=== PATIENT | male | born 1990 ===

== ENCOUNTER 2016-10-13 12:12 | Emergency (ER) | payer OTHER ==
[2016-10-13 12:12] VITALS: BMI 20.9
--- NOTE | 2016-10-13 13:06 | ED PDOC ---
Arrival/HPI <Liane Ribeiro - Last Filed: 10/13/16 16:30> - General Historian: Patient, Fishing Vessel Operator - History of Present Illness Time/Duration: > week Symptom Onset: Gradual Quality: Aching Context: Standing <Armaan Yoon - Last Filed: 10/13/16 18:55> - General Chief Complaint: Lower Extremity Problem/Injury Time Seen by Provider: 10/13/16 12:42 - History of Present Illness Narrative History of Present Illness (Text): 10/13/16 13:01 26 y/o male with hx of IDDM presenting with complaints of b/l distal LE pain. Patient describes pain as achy in nature and notes sx started about 2 weeks ago.He notes pain is worse with prolonged standing and also frequently presents at night. He denies injury or trauma to either leg. He further denies weakness or sensory deficits, fever, chills, recent illness, shortness of breath or chest pain. He states he is compliant with his insulin regimen which includes 50u in the the am and 40u at bedtime. Patient has a history of poorly controlled diabetes according to records. (Armaan Yoon) Past Medical History - Provider Review Nursing Documentation Reviewed: Yes - Travel History Have you recently traveled outside [place] w/in the past 3 mons?: No - Infectious Disease Hx of Infectious Diseases: None - Tetanus Immunization Tetanus Immunization: Unknown - Cardiac Hx Cardiac Disorders: No - Pulmonary Hx Respiratory Disorders: No - Neurological Hx Neurological Disorder: No - HEENT Hx HEENT Disorder: No - Renal Hx Renal Disorder: No - Endocrine/Metabolic Hx Endocrine Disorders: Yes Hx Diabetes Mellitus Type 1: Yes - Hematological/Oncological Hx Blood Disorders: No - Integumentary Hx Dermatological Disorder: No - Musculoskeletal/Rheumatological Hx Musculoskeletal Disorders: Yes Hx Falls: Yes - Gastrointestinal Hx Gastrointestinal Disorders: Yes Hx Pancreatitis: Yes - Genitourinary/Gynecological Hx Genitourinary Disorders: No - Psychiatric Hx Psychophysiologic Disorder: Yes (ETOH USE) Hx Depression: No Hx Emotional Abuse: No Hx Physical Abuse: No Hx Substance Use: No - Past Surgical History Past Surgical History: No Previous - Suicidal Assessment Feels Threatened In Home Enviroment: No <Armaan Yoon - Last Filed: 10/13/16 18:55> Family/Social History Family/Social History: No Known Family HX Smoking Status: Never Smoked Hx Alcohol Use: No Hx Substance Use: No Hx Substance Use Treatment: No <Armaan Yoon - Last Filed: 10/13/16 18:55> Allergies/Home Meds <Liane Ribeiro - Last Filed: 10/13/16 16:30> <Armaan Yoon - Last Filed: 10/13/16 18:55> Allergies/Adverse Reactions: Allergies Penicillins Allergy (Verified 10/13/16 12:37) ANAPHYLAXIS Home Medications: Home Meds Medication Instructions Recorded Confirmed Insulin Human (NPH)/Regular 1 unit SC PRN PRN 09/24/16 10/13/16 [Novolin 70/30 (70/30 units/ml) 10 ml] Review of Systems - Physician Review All systems were reviewed & negative as marked: Yes - Review of Systems Constitutional: Normal. absent: Fevers, Night Sweats ENT: Normal Respiratory: absent: SOB, Cough Cardiovascular: Calf Pain. absent: Chest Pain, Palpitations, LE Gastrointestinal: absent: Abdominal Pain, Diarrhea, Vomiting Musculoskeletal: absent: Back Pain, Neck Pain Skin: absent: Rash, Skin Lesions Neurological: Other (+b/l LE pain). absent: Headache, Dizziness, Focal Weakness <Armaan Yoon - Last Filed: 10/13/16 18:55> Physical Exam Vital Signs Reviewed: Yes Temperature: Afebrile Blood Pressure: Normal Pulse: Tachycardic Respiratory Rate: Normal Appearance: Positive for: Well-Appearing Pain Distress: None Mental Status: Positive for: Alert and Oriented X 3 Finger Stick Blood Glucose: 378 - Systems Exam Head: Present: Atraumatic, Normocephalic Pupils: Present: PERRL Extroacular Muscles: Present: EOMI Conjunctiva: Present: Normal Mouth: Present: Moist Mucous Membranes Neck: Present: Normal Range of Motion Respiratory/Chest: Present: Clear to Auscultation. No: Respiratory Distress, Accessory Muscle Use, Tachypneic Cardiovascular: Present: Tachycardic. No: Irregular Rhythm Abdomen: No: Tenderness, Distention, Normal Bowel Sounds, Peritoneal Signs Back: Present: Normal Inspection. No: Midline Tenderness, Paraspinal Tenderness Upper Extremity: Present: Normal Inspection, Cyanosis, Edema Lower Extremity: Present: Normal Inspection, NORMAL PULSES, Neurovascularly Intact. No: Edema, CALF TENDERNESS Neurological: Present: GCS=15, CN II-XII Intact, Speech Normal, Motor Func Grossly Intact Skin: Present: Warm, Normal Color. No: Rashes Psychiatric: Present: Alert, Oriented x 3, Normal Insight, Normal Concentration <Armaan Yoon - Last Filed: 10/13/16 18:55> Vital Signs Temp Pulse Resp BP Pulse Ox 10/13/16 16:46 87 16 120/72 99 10/13/16 14:24 98.5 F 110 H 16 122/88 98 10/13/16 12:32 98.2 F 128 H 18 132/57 L 97 Medical Decision Making - Lab Interpretations I have reviewed the lab results: Yes <Liane Ribeiro - Last Filed: 10/13/16 16:30> - EKG Interpretation Interpreted by ED Physician: Yes Type: 12 lead EKG <Armaan Yoon - Last Filed: 10/13/16 18:55> ED Course and Treatment: 10/13/16 13:33 Patient seen and examined with resident. Came up with treatment and disposition plan with resident. The patient is a 26 year old male who comes into the emergency department for evaluation of bilateral lower extremity pain. Additional HPI details as noted by the resident. Physical examination reveal no acute findings. 10/13/16 16:30 Patient ultrasound is negative. Blood glucose is 259. On re-evaluation, the patient feels better and is in no acute distress. I have discussed the results and plan with the patient, who expresses understanding. Patient in agreement with plan to discharged home. Patient is stable for discharge. Patient was instructed to follow up with physician/clinic in 1-2 days or return if symptoms worsen or new concerning symptoms arise. (Liane Ribeiro) 10/13/16 13:12 26 y/o male with hx IDDM presenting with pain to b/l LE 2/2 neuropathy/DVT/ radiculopathy - start normal saline - repeat fingerstick - d-dimer - routine labs - Doppler b/l LE - r/o DVT 10/13/16 16:17 - Duplex b/l LE negative for DVT - repeat bedside blood glucose - 259 10/13/16 16:18 W/u is essentially unremarkable. His distal extremity pain is likely secondary to diabetic neuropathy secondary to his uncontrolled diabetes. The patient was advised to take his insulin as directed and to follow-up at [facility] where he is followed within one week. He was given a seven day course of Naproxen 500mg PO q12 PRN pain. (Armaan Yoon) - Lab Interpretations Lab Results: 10/13/16 13:40 10/13/16 12:59 Lab Results 10/13/16 16:17: POC Glucose (mg/dL) 251 H 10/13/16 14:12: TSH 3rd Generation 2.09 10/13/16 13:40: WBC 5.6, RBC 4.84, Hgb 15.3, Hct 41.3 L, MCV 85.3, MCH 31.6, MCHC 37.0, RDW 11.7, Plt Count 291, MPV 9.0, Gran % 46.8 L, Lymph % (Auto) 45.9 H, [place] % (Auto) 6.6 H, Eos % (Auto) 0.5 L, Baso % (Auto) 0.2, Gran # 2.63, Lymph # 2.6, [place] # 0.4, Eos # 0.0, Baso # 0.01, D-Dimer, Quantitative 0.19 10/13/16 12:59: Sodium 133, Potassium 4.1, Chloride 93 L, Carbon Dioxide 28, Anion Gap 16, BUN 12, Creatinine 0.5, Est GFR ( Amer) > 60, Est GFR (Non- Af Amer) > 60, Random Glucose 409 H*, Calcium 10.2, Total Bilirubin 0.7, AST 21 , ALT 17, Alkaline Phosphatase 108, Total Protein 8.4 H, Albumin 4.6, Globulin 3.8, Albumin/Globulin Ratio 1.2, Lipase 57 10/13/16 12:44: POC Glucose (mg/dL) 378 H - RAD Interpretation Radiology Orders: 10/13/16 12:58 DUPLEX LOWER EXTRM VEIN BILAT [US] [facility] - EKG Interpretation EKG Interpretation (Text): 10/13/16 14:23 Sinus tachycardia (Armaan Yoon) - Medication Orders Current Medication Orders: Discontinued Medications Sodium Chloride (Sodium Chloride 0.9%) 1,000 mls @ 125 mls/hr IV .Q8H [facility] Last Admin: 10/13/16 13:25 Dose: 125 MLS/HR eMAR Start Stop Document 10/13/16 13:25 EWO (Rec: 10/13/16 13:25 EWO [id number]) Intravenous Solution Start Date 10/13/16 Start Time 13:25 Sodium Chloride (Sodium Chloride 0.9%) 2,000 mls @ 1,000 mls/hr IV .Q2H [facility] Last Admin: 10/13/16 14:15 Dose: 1,000 MLS/HR eMAR Start Stop Document 10/13/16 14:15 [facility] (Rec: 10/13/16 16:45 [id number] Intravenous Solution Start Date 10/13/16 Start Time 14:15 End Date 10/13/16 End time 15:15 Total Infusion Time 60 - Scribe Statement The provider has reviewed the documentation as recorded by the Scribe <Liane Ribeiro - Last Filed: 10/13/16 16:30> <Armaan oYon - Last Filed: 10/13/16 18:55> - Scribe Statement Raymundo Calle Provider Scribe Attestation: All medical record entries made by the Scribe were at my direction and personally dictated by me. I have reviewed the chart and agree that the record accurately reflects my personal performance of the history, physical exam, medical decision making, and the department course for this patient. I have also personally directed, reviewed, and agree with the discharge instructions and disposition. (Liane Ribeiro) Disposition/Present on Arrival <Liane Ribeiro - Last Filed: 10/13/16 16:30> - Present on Arrival Any Indicators Present on Arrival: No History of DVT/PE: No History of Uncontrolled Diabetes: Yes Urinary Catheter: No History of Decub. Ulcer: No History Surgical Site Infection Following: None - Disposition Have Diagnosis and Disposition been Completed?: Yes Disposition Time: 17:00 <Armaan Yoon - Last Filed: 10/13/16 18:55> - Disposition Diagnosis: Peripheral neuropathy Disposition: HOME/ ROUTINE Condition: GOOD Discharge Instructions (ExitCare): Diabetes Mellitus Type 1 in Adults (ED) Print Language: GRENADIAN Additional Instructions: Please take medications as prescribed. Please follow-up with family doctor at [facility] within one week for further management of diabetes. Take pain medication - Naproxen 500mg twice daily as needed for pain. Prescriptions: Naproxen 500 mg PO Q12 #14 tab Referrals: PCP,NO [Primary Care Provider] - Follow up with primary
[2016-10-13] MEDS ORDERED: Sodium Chloride 0.9% 1,000 ML IV SCH (13:30)
[2016-10-13 13:33] LABS: ADD MANUAL DIFF? NO; BASO # 0.01 K/mm3 (0.0-2.0); BASO % 0.2 % (0.0-3.0); EOS % 0.5 % (1.5-5.0); GRAN # 2.63 (1.4-6.5); GRAN % 46.8 % (50.0-68.0); HEMATOCRIT 41.3 % (42.0-52.0); LYMPH # 2.6 (1.2-3.4); LYMPH % 45.9 % (22.0-35.0); MEAN CELL VOLUME 85.3 fL (80.0-105.0); MEAN CORPUSCULAR HEMOGLOBIN 31.6 pg (25.0-35.0); MONO # 0.4 (0.1-0.6); MONO % 6.6 % (1.0-6.0); PLATELET COUNT 291 10^3/uL (120.0-450.0); RED CELL DISTRIBUTION WIDTH 11.7 % (11.5-14.5); WHITE BLOOD COUNT 5.6 10^3/ul (4.5-11.0)
[2016-10-13 13:44] LABS: ALB/GLOB RATIO 1.2 (1.1-1.8); ALKALINE PHOSPHATASE 108 U/L (38-133); ALT/SGPT 17 U/L (7-56); AST/SGOT 21 U/L (15-59); BILIRUBIN,TOTAL 0.7 mg/dL (0.2-1.3); BLOOD UREA NITROGEN 12 mg/dL (7-21); CALCIUM 10.2 mg/dL (8.4-10.5); CARBON DIOXIDE 28 mmol/L (21-33); CHLORIDE 93 mmol/L (98-107); GFR AFRICAN-AMERICAN > 60; LIPASE 57 U/L (23-300); POTASSIUM 4.1 mmol/L (3.6-5.0); SODIUM 133 mmol/L (132-148); TOTAL PROTEIN 8.4 g/dL (5.8-8.3)
[2016-10-13 13:56] LABS: GLUCOSE,RANDOM 409 mg/dL (70-110)
[2016-10-13] MEDS ORDERED: Sodium Chloride 0.9% 2,000 ML IV SCH (14:15)
[2016-10-13 14:24] VITALS: RESP 16; TEMP 98.5
[2016-10-13 16:48] VITALS: BP 120/72; PULSE 87; O2SAT 99
--- NOTE | 2016-10-13 18:14 | CARD ---
APPROVED REPORT EKG Measurement Heart [id number] <Conclusion> Sinus tachycardia Otherwise normal ECG
--- NOTE | 2016-10-13 22:02 | US ---
HISTORY: Leg pain and swelling. Evaluate for DVT PHYSICIAN(S): John Barrera MD. TECHNIQUE: Duplex sonography and color-flow Doppler with graded compression were used to evaluate the deep venous systems of both lower extremities. FINDINGS: The visualized deep venous systems of both lower extremities are sonographically normal and compressible. Normal wave forms and augmentation are seen. There is no sonographic evidence for deep venous thrombosis in the visualized segments of both lower extremities. IMPRESSION: No sonographic evidence for deep venous thrombosis in the visualized segments of both lower extremities.
== END 2016-10-13 16:48 | disposition home or self-care (01) ==
LOC: ED 12:12
DX: G62.9 Polyneuropathy, unspecified (principal); E10.9 Type 1 diabetes mellitus without complications; Z79.4 Long term (current) use of insulin; Z88.0 Allergy status to penicillin
CPT/HCPCS: 80053; 82948; 83690; 84443; 85025; 85378; 93005; 93970; 96360; 99283; J7040

== ENCOUNTER 2017-04-28 09:37 | Emergency (ER) | payer OTHER ==
[2017-04-28 09:39] VITALS: BMI 20.9
[2017-04-28] MEDS ORDERED: Sodium Chloride 0.9% 1,000 ML IV STA ×2 (09:58→10:43)
--- NOTE | 2017-04-28 10:02 | ED PDOC ---
Arrival/HPI - General Chief Complaint: Abdominal Pain Time Seen by Provider: 04/28/17 09:54 Historian: Patient - History of Present Illness Narrative History of Present Illness (Text): 04/28/17 09:55 Gabriele Mathew is a 26 year old male, whose past medical history includes diabetes, who presents to the emergency department complaining of diarrhea for the past week. Patient reports everything he eats, five minutes later he has a bowel movement of diarrhea. pt denies any blood in the stool. pt denies abdominal pain. Patient denies any fever, nausea, vomiting, shortness of breath , chest pain, headache, or other complaints. 04/28/17 11:05 Time/Duration: 1 week Symptom Onset: Sudden Symptom Course: Unchanged Modifying Factors (Text): diarrhea after eating Past Medical History - Provider Review Nursing Documentation Reviewed: Yes - Infectious Disease Hx of Infectious Diseases: None - Tetanus Immunization Tetanus Immunization: Unknown - Cardiac Hx Cardiac Disorders: No - Pulmonary Hx Respiratory Disorders: No - Neurological Hx Neurological Disorder: No - HEENT Hx HEENT Disorder: No - Renal Hx Renal Disorder: No - Endocrine/Metabolic Hx Endocrine Disorders: Yes Hx Diabetes Mellitus Type 1: Yes - Hematological/Oncological Hx Blood Disorders: No - Integumentary Hx Dermatological Disorder: No - Musculoskeletal/Rheumatological Hx Musculoskeletal Disorders: Yes Hx Falls: Yes Other/Comment: 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 - Gastrointestinal Hx Gastrointestinal Disorders: Yes Hx Pancreatitis: Yes - Genitourinary/Gynecological Hx Genitourinary Disorders: No - Psychiatric Hx Psychophysiologic Disorder: Yes (ETOH USE) Hx Depression: No Hx Emotional Abuse: No Hx Physical Abuse: No Hx Substance Use: No - Past Surgical History Past Surgical History: No Previous - Anesthesia Hx Anesthesia: No - Suicidal Assessment Feels Threatened In Home Enviroment: No Family/Social History - Physician Review Nursing Documentation Reviewed: Yes Family/Social History: Unknown Family HX Smoking Status: Never Smoked Hx Alcohol Use: No Hx Substance Use: No Hx Substance Use Treatment: No Allergies/Home Meds Allergies/Adverse Reactions: Allergies Penicillins Allergy (Verified 04/28/17 09:43) ANAPHYLAXIS Home Medications: Home Meds Medication Instructions Recorded Confirmed Insulin Human (NPH)/Regular 15 unit SC BID 09/24/16 04/28/17 [Novolin 70/30 (70/30 units/ml) 10 ml] Gabapentin [Gabapentin] 300 mg PO BID 04/28/17 04/28/17 Potassium Gluconate [Potassium] 0 mg PO DAILY 04/28/17 04/28/17 Review of Systems - Review of Systems Constitutional: absent: Fevers Respiratory: absent: SOB Cardiovascular: absent: Chest Pain Gastrointestinal: Diarrhea (1 week). absent: Nausea, Vomiting Genitourinary Male: absent: Dysuria, Frequency Neurological: absent: Headache, Dizziness Physical Exam Vital Signs Reviewed: Yes Vital Signs Temp Pulse Resp BP Pulse Ox 04/28/17 11:56 86 16 117/73 100 04/28/17 10:58 90 15 119/74 100 04/28/17 10:12 98.0 F 04/28/17 09:47 98.6 F 128 H 18 105/71 99 Temperature: Afebrile Blood Pressure: Normal Pulse: Tachycardic Respiratory Rate: Normal Appearance: Positive for: Well-Appearing, Non-Toxic, Comfortable Pain Distress: None Mental Status: Positive for: Alert and Oriented X 3 Finger Stick Blood Glucose: 318 - Systems Exam Head: Present: Atraumatic, Normocephalic Pupils: Present: PERRL Extroacular Muscles: Present: EOMI Conjunctiva: Present: Normal Mouth: Present: Moist Mucous Membranes Respiratory/Chest: Present: Clear to Auscultation, Good Air Exchange. No: Respiratory Distress, Accessory Muscle Use Cardiovascular: Present: Regular Rate and Rhythm, Normal S1, S2. No: Murmurs Abdomen: Present: Normal Bowel Sounds. No: Tenderness, Distention, Peritoneal Signs Lower Extremity: Present: Normal Inspection. No: Edema Neurological: Present: GCS=15, CN II-XII Intact, Speech Normal Skin: Present: Warm, Dry, Normal Color. No: Rashes Psychiatric: Present: Alert, Oriented x 3, Normal Insight, Normal Concentration Medical Decision Making ED Course and Treatment: 04/28/17 r/o colitis, dka, infectious etiology- pt w/o any abdominal tenderness on exam. EKG: Ordered, reviewed, and independently interpreted the EKG. Rate : 111 BPM Rhythm : sinus tachycardia Interpretation : No ST-segment elevations or depressions, no T-wave inversions, normal intervals. Comparison : No previous EKG for comparison. 04/28/17 11:05 pt reassesed: states symptoms improved. pt denies any abdomianl pain. pt offered ct of abdomen, but he declines. no e/o of dka. blood sugar decreasing. pt advised outpt f/u and return precautions - Lab Interpretations Lab Results: 04/28/17 10:18 04/28/17 10:18 Lab Results 04/28/17 10:18: pO2 54, VBG pH 7.32, VBG pCO2 55.0, VBG HCO3 28.3 H, VBG Total CO2 30.0 H, VBG O2 Sat (Calc) 88.6 H, VBG Base Excess 1.1, VBG Potassium 4.0, Sodium 136.0, Chloride 101.0, Glucose 401 H*, Lactate 1.6, FiO2 21.0, Venous Blood Potassium 4.0 04/28/17 10:18: Sodium 138, Chloride 99, Potassium 4.0, Carbon Dioxide 26, Anion Gap 17, BUN 14, Creatinine 0.5 L, Est GFR ( Amer) > 60, Est GFR ( Non-Af Amer) > 60, Random Glucose 359 H*, Calcium 9.4, Total Bilirubin 0.9, AST 24, ALT 39, Alkaline Phosphatase 137 H, Total Protein 7.3, Albumin 4.6, Globulin 2.7, Albumin/Globulin Ratio 1.7, Lipase 81 04/28/17 10:18: PT 10.4, INR 0.96, APTT 24.8 04/28/17 10:18: WBC 5.3, RBC 4.60, Hgb 14.5, Hct 39.5 L, MCV 85.9, MCH 31.5, MCHC 36.7, RDW 11.9, Plt Count 191, MPV 9.2, Gran % 48.1 L, Lymph % (Auto) 44.5 H, [place] % (Auto) 5.9, Eos % (Auto) 1.1 L, Baso % (Auto) 0.4, Gran # 2.53, Lymph # 2.3, [place] # 0.3, Eos # 0.1, Baso # 0.02 I have reviewed the lab results: Yes - EKG Interpretation Interpreted by ED Physician: Yes Type: 12 lead EKG - Medication Orders Current Medication Orders: Discontinued Medications Acetaminophen (Tylenol 325mg Tab) 975 mg PO STAT STA Stop: 04/28/17 10:00 Last Admin: 04/28/17 10:33 Dose: 975 mg MAR Pain/Vitals Document 04/28/17 10:33 EQ (Rec: 04/28/17 10:33 EQ [id number]) Pain Reassessment Is This A Pain ReAssessment? No Sleep Is patient sleeping during reassessment? No Presence of Pain Presence of Pain Yes Pain Scale Used Pain Scale Used Numeric Sodium Chloride (Sodium Chloride 0.9%) 1,000 mls @ 1,000 mls/hr IV .Q1H STA Stop: 04/28/17 10:57 Last Admin: 04/28/17 10:19 Dose: 1,000 mls/hr eMAR Start Stop Document 04/28/17 10:19 EQ (Rec: 04/28/17 10:19 EQ [id number]) Intravenous Solution Start Date 04/28/17 Start Time 10:19 Sodium Chloride (Sodium Chloride 0.9%) 1,000 mls @ 999 mls/hr IV .Q1H1M STA Stop: 04/28/17 11:43 Last Admin: 04/28/17 10:55 Dose: 999 mls/hr eMAR Start Stop Document 04/28/17 10:55 EQ (Rec: 04/28/17 10:55 EQ [id number]) Intravenous Solution Start Date 04/28/17 Start Time 10:55 - Scribe Statement The provider has reviewed the documentation as recorded by the Ramila Maher Provider Scribe Attestation: All medical record entries made by the Scribe were at my direction and personally dictated by me. I have reviewed the chart and agree that the record accurately reflects my personal performance of the history, physical exam, medical decision making, and the department course for this patient. I have also personally directed, reviewed, and agree with the discharge instructions and disposition. Disposition/Present on Arrival - Present on Arrival Any Indicators Present on Arrival: No History of DVT/PE: No History of Uncontrolled Diabetes: Yes Urinary Catheter: No History of Decub. Ulcer: No History Surgical Site Infection Following: None - Disposition Have Diagnosis and Disposition been Completed?: Yes Diagnosis: Diarrhea Disposition: HOME/ ROUTINE Disposition Time: 11:07 Condition: STABLE Discharge Instructions (ExitCare): Dehydration (ED), Acute Diarrhea (ED), Acute Abdominal Pain (ED), Diabetic Hyperglycemia (ED) Print Language: CANADIAN Additional Instructions: please follow up with your doctor. return to er with worsening symptoms or concerns. you may need additional diagnositc testing as an outpatient. it is important that you follow up. Referrals: PCP,NO [Primary Care Provider] - Follow up with primary [facility] [Outside] - Follow up with primary [facility] [Outside] - Follow up with primary [facility] [Outside] - Follow up with primary Adams Chiang MD [Staff Provider] - Follow up with primary Forms: [employer] [address] (Greenlandic)
[2017-04-28 10:12] VITALS: TEMP 98
[2017-04-28 10:29] LABS: VENOUS BLOOD GAS BASE EXCESS 1.1 mmol/L (0.0-2.0); VENOUS BLOOD PH 7.32 (7.32-7.43)
[2017-04-28 10:32] LABS: BASO # 0.02 K/mm3 (0.0-2.0); BASO % 0.4 % (0.0-3.0); EOS # 0.1 (0.0-0.7); EOS % 1.1 % (1.5-5.0); GRAN # 2.53 (1.4-6.5); GRAN % 48.1 % (50.0-68.0); HEMATOCRIT 39.5 % (42.0-52.0); LYMPH # 2.3 (1.2-3.4); LYMPH % 44.5 % (22.0-35.0); MEAN CELL VOLUME 85.9 fl (80.0-105.0); MEAN CORPUSCULAR HEMOGLOBIN 31.5 pg (25.0-35.0); MEAN CORPUSCULAR HGB CONC 36.7 g/dl (31.0-37.0); MEAN PLATELET VOLUME 9.2 fl (7.0-11.0); MONO # 0.3 (0.1-0.6); MONO % 5.9 % (1.0-6.0); RED CELL DISTRIBUTION WIDTH 11.9 % (11.5-14.5); WHITE BLOOD COUNT 5.3 10^3/ul (4.5-11.0)
[2017-04-28 10:34] LABS: ALB/GLOB RATIO 1.7 (1.1-1.8); ALKALINE PHOSPHATASE 137 U/L (38-126); ALT/SGPT 39 U/L (7-56); AST/SGOT 24 U/L (17-59); BILIRUBIN,TOTAL 0.9 mg/dL (0.2-1.3); BLOOD UREA NITROGEN 14 mg/dL (7-21); CALCIUM 9.4 mg/dL (8.4-10.5); CARBON DIOXIDE 26 mmol/L (21-33); CHLORIDE 99 mmol/L (98-107); GFR AFRICAN-AMERICAN > 60; LIPASE 81 U/L (23-300); SODIUM 138 mmol/L (132-148); TOTAL PROTEIN 7.3 g/dL (5.8-8.3)
[2017-04-28 10:36] LABS: INR 0.96 (0.93-1.08); PARTIAL THROMBOPLASTIN TIME 24.8 Seconds (23.7-30.8)
[2017-04-28 10:42] LABS: GLUCOSE,RANDOM 359 mg/dL (70-110)
[2017-04-28 10:59] VITALS: O2SAT 100
[2017-04-28 11:56] VITALS: BP 117/73; PULSE 86; RESP 16
--- NOTE | 2017-04-29 01:57 | CARD ---
APPROVED REPORT EKG Measurement Heart [id number] <Conclusion> Sinus tachycardia Nonspecific T wave abnormality Abnormal ECG
== END 2017-04-28 11:58 | disposition home or self-care (01) ==
LOC: ED 09:37
DX: R19.7 Diarrhea, unspecified (principal)
CPT/HCPCS: 80053; 82803; 82948; 83690; 85025; 85610; 85730; 93005; 99284; J7040

== ENCOUNTER 2017-07-28 11:22 | Emergency (ER) | payer OTHER ==
[2017-07-28 11:22] VITALS: BMI 20.9
[2017-07-28 11:36] VITALS: O2SAT 100
[2017-07-28] MEDS ORDERED: Sodium Chloride 0.9% 1,000 ML IV STA ×2 (11:40→13:06)
[2017-07-28] MEDS ORDERED: Insulin Reg-MEDIUM-Coverage IV STA ×2 (11:41→13:06)
[2017-07-28] MEDS ORDERED: Insulin Regular 1 UNITS/0.01 ML ML ONE (12:09)
[2017-07-28 12:12] LABS: BASO # 0.02 K/mm3 (0.0-2.0); BASO % 0.4 % (0.0-3.0); EOS % 0.8 % (1.5-5.0); GRAN # 2.8 (1.4-6.5); GRAN % 57.5 % (50.0-68.0); LYMPH # 1.7 (1.2-3.4); LYMPH % 34.1 % (22.0-35.0); MEAN CELL VOLUME 89.5 fl (80.0-105.0); MEAN CORPUSCULAR HEMOGLOBIN 31.4 pg (25.0-35.0); MEAN CORPUSCULAR HGB CONC 35.1 g/dl (31.0-37.0); MEAN PLATELET VOLUME 9.3 fl (7.0-11.0); MONO # 0.4 (0.1-0.6); MONO % 7.2 % (1.0-6.0); RBC 4.46 10^6/uL (3.5-6.1); RED CELL DISTRIBUTION WIDTH 12.7 % (11.5-14.5); WHITE BLOOD COUNT 4.9 10^3/ul (4.5-11.0)
[2017-07-28 12:23] LABS: INR 0.9 (0.93-1.08); PROTHROMBIN TIME 10.3 SECONDS (9.4-12.5)
[2017-07-28 12:34] LABS: TROPONIN I < 0.01 ng/mL
[2017-07-28 12:38] LABS: ALB/GLOB RATIO 1.6 (1.1-1.8); ALBUMIN 4.6 g/dL (3.0-4.8); ALT/SGPT 42 U/L (7-56); AST/SGOT 31 U/L (17-59); BLOOD UREA NITROGEN 14 mg/dL (7-21); CALCIUM 9.2 mg/dL (8.4-10.5); GFR AFRICAN-AMERICAN > 60; GFR NON-AFRICAN AMERICAN > 60
[2017-07-28 14:17] VITALS: BP 115/73; PULSE 90; RESP 19; TEMP 98.3
--- NOTE | 2017-07-28 14:30 | ED PDOC ---
Arrival/HPI - General Chief Complaint: High Blood Sugar Time Seen by Provider: 07/28/17 11:37 Historian: Patient - History of Present Illness Narrative History of Present Illness (Text): 07/28/17 14:27 27yo male with PMHx of IDDM who was referred to ED for a BS of 491. Patient states he is on 25unit of regular insulin, but did not take it today. States he intentionally didn't take it because he had doctor's appointment this morning. He reports polydipsia since this morning. Denies abdominal pain, nausea, vomiting, diarrhea, focal weakness, polyuria, any other complaint. Past Medical History - Provider Review Nursing Documentation Reviewed: Yes - Infectious Disease Hx of Infectious Diseases: None - Tetanus Immunization Tetanus Immunization: Unknown - Cardiac Hx Cardiac Disorders: No - Pulmonary Hx Respiratory Disorders: No - Neurological Hx Neurological Disorder: No - HEENT Hx HEENT Disorder: No - Renal Hx Renal Disorder: No - Endocrine/Metabolic Hx Endocrine Disorders: Yes Hx Diabetes Mellitus Type 1: Yes - Hematological/Oncological Hx Blood Disorders: No - Integumentary Hx Dermatological Disorder: No - Musculoskeletal/Rheumatological Hx Musculoskeletal Disorders: Yes Hx Falls: Yes Other/Comment: 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 - Gastrointestinal Hx Gastrointestinal Disorders: Yes Hx Pancreatitis: Yes - Genitourinary/Gynecological Hx Genitourinary Disorders: No - Psychiatric Hx Psychophysiologic Disorder: Yes (ETOH USE in past) Hx Substance Use: No - Past Surgical History Past Surgical History: No Previous - Anesthesia Hx Anesthesia: No - Suicidal Assessment Feels Threatened In Home Enviroment: No Family/Social History - Physician Review Nursing Documentation Reviewed: Yes Family/Social History: Unknown Family HX Smoking Status: Never Smoked Hx Alcohol Use: No Hx Substance Use: No Hx Substance Use Treatment: No Allergies/Home Meds Allergies/Adverse Reactions: Allergies Penicillins Allergy (Verified 07/28/17 11:36) ANAPHYLAXIS Home Medications: Home Meds Medication Instructions Recorded Confirmed Insulin Human (NPH)/Regular 25 unit SC BID 09/24/16 07/28/17 [Novolin 70/30 (70/30 units/ml) 10 ml] Gabapentin [Gabapentin] 300 mg PO BID 04/28/17 07/28/17 Review of Systems - Physician Review All systems were reviewed & negative as marked: Yes - Review of Systems Constitutional: Normal Eyes: Normal ENT: Normal Respiratory: Normal Cardiovascular: Normal Gastrointestinal: Normal Genitourinary Male: Normal Musculoskeletal: Normal Skin: Normal Neurological: Normal Endocrine: Polydipsia Hemo/Lymphatic: Normal Psychiatric: Normal Physical Exam Vital Signs Reviewed: Yes Vital Signs Temp Pulse Resp BP Pulse Ox 07/28/17 14:10 98.3 F 90 19 115/73 100 07/28/17 11:29 98.1 F 101 H 18 134/87 100 Temperature: Afebrile Blood Pressure: Normal Pulse: Tachycardic Respiratory Rate: Normal Appearance: Positive for: Well-Appearing, Non-Toxic, Comfortable Pain Distress: None Mental Status: Positive for: Alert and Oriented X 3 Finger Stick Blood Glucose: 349 - Systems Exam Head: Present: Atraumatic, Normocephalic Pupils: Present: PERRL Extroacular Muscles: Present: EOMI Conjunctiva: Present: Normal Mouth: Present: Moist Mucous Membranes Neck: Present: Normal Range of Motion Respiratory/Chest: Present: Clear to Auscultation, Good Air Exchange. No: Respiratory Distress, Accessory Muscle Use Cardiovascular: Present: Regular Rate and Rhythm, Normal S1, S2. No: Murmurs Abdomen: Present: Normal Bowel Sounds. No: Tenderness, Distention, Peritoneal Signs Back: Present: Normal Inspection Upper Extremity: Present: Normal Inspection. No: Cyanosis, Edema Lower Extremity: Present: Normal Inspection. No: Edema Neurological: Present: GCS=15, CN II-XII Intact, Speech Normal Skin: Present: Warm, Dry, Normal Color. No: Rashes Psychiatric: Present: Alert, Oriented x 3, Normal Insight, Normal Concentration Medical Decision Making ED Course and Treatment: 07/28/17 18:29 PT in ED for stated history. He have history of IDDM and did not take his insulin this morning to fast for lab test. In ED he was hemodynamically stable. Lab was noted with elevated BS. His BS improved in ED with insulin and hydration. He was DC home and advised to continue with his medication as was directed. Referred to his PMD. TRT ED for any new or worsening symptoms. - Lab Interpretations Lab Results: 07/28/17 12:00 07/28/17 12:00 Lab Results 07/28/17 14:31: POC Glucose (mg/dL) 239 H 07/28/17 14:22: Urine Color Yellow, Urine Appearance Clear, Urine pH 6.0, Ur Specific Rinard 1.010, Urine Protein Negative, Urine Glucose (UA) >=1000, Urine Ketones 15 H, Urine Blood Negative, Urine Nitrate Negative, Urine Bilirubin Negative, Urine Urobilinogen 0.2, Ur Leukocyte Esterase Negative 07/28/17 13:02: POC Glucose (mg/dL) 364 H 07/28/17 12:00: Sodium 131 L, Potassium 3.6, Chloride 92 L, Carbon Dioxide 26, Anion Gap 16, BUN 14, Creatinine 0.6 L, Est GFR ( Amer) > 60, Est GFR ( Non-Af Amer) > 60, Random Glucose 634 H* D, Calcium 9.2, Total Bilirubin 0.6, AST 31, ALT 42, Alkaline Phosphatase 208 H, Lactate Dehydrogenase 416, Total Creatine Kinase 30 L, Troponin I < 0.01, Total Protein 7.3, Albumin 4.6, Globulin 2.8, Albumin/Globulin Ratio 1.6 07/28/17 12:00: PT 10.3, INR 0.90 L, APTT 26.0 07/28/17 12:00: WBC 4.9, RBC 4.46, Hgb 14.0, Hct 39.9 L, MCV 89.5 D, MCH 31.4, MCHC 35.1, RDW 12.7, Plt Count 191, MPV 9.3, Gran % 57.5, Lymph % (Auto) 34.1, Stephenson % (Auto) 7.2 H, Eos % (Auto) 0.8 L, Baso % (Auto) 0.4, Gran # 2.80, Lymph # 1.7, Stephenson # 0.4, Eos # 0.0, Baso # 0.02 07/28/17 11:35: POC Glucose (mg/dL) 491 H* - Medication Orders Current Medication Orders: Discontinued Medications Sodium Chloride (Sodium Chloride 0.9%) 1,000 mls @ 1,000 mls/hr IV .Q1H STA Stop: 07/28/17 12:39 Last Admin: 07/28/17 12:16 Dose: 1,000 mls/hr eMAR Start Stop Document 07/28/17 12:16 LA (Rec: 07/28/17 12:16 LA [facility] [id number]) Intravenous Solution Start Date 07/28/17 Start Time 12:00 Sodium Chloride (Sodium Chloride 0.9%) 1,000 mls @ 999 mls/hr IV .Q1H1M STA Stop: 07/28/17 14:06 Last Admin: 07/28/17 13:38 Dose: 999 mls/hr eMAR Start Stop Document 07/28/17 13:38 LA (Rec: 07/28/17 13:38 LA [facility] [id number]) Intravenous Solution Start Date 07/28/17 Start Time 13:38 Insulin Human Regular (Humulin R Med) 10 units IV ONCE STA PRN Reason: Protocol Stop: 07/28/17 11:42 Last Admin: 07/28/17 12:14 Dose: 10 units eMAR Start Stop Document 07/28/17 12:14 LA (Rec: 07/28/17 12:15 LA [facility] [id number]) Intravenous Solution Start Date 07/28/17 Start Time 12:15 MAR Blood Glucose Document 07/28/17 12:14 LA (Rec: 07/28/17 12:15 LA [facility] [id number]) Blood Glucose Finger Stick Blood Glucose (70-120) 491 Insulin Human Regular (Humulin R Med) 8 units IV ONCE STA PRN Reason: Protocol Stop: 07/28/17 13:07 Last Admin: 07/28/17 13:35 Dose: 8 units eMAR Start Stop Document 07/28/17 13:35 LA (Rec: 07/28/17 13:36 LA [facility] [id number]) Intravenous Solution Start Date 07/28/17 Start Time 13:36 MAR Blood Glucose Document 07/28/17 13:35 LA (Rec: 07/28/17 13:36 [facility][id number]) Blood Glucose Finger Stick Blood Glucose (70-120) 349 Disposition/Present on Arrival - Present on Arrival Any Indicators Present on Arrival: No History of DVT/PE: No History of Uncontrolled Diabetes: Yes Urinary Catheter: No History of Decub. Ulcer: No History Surgical Site Infection Following: None - Disposition Have Diagnosis and Disposition been Completed?: Yes Diagnosis: Diabetes mellitus type 1, Hyperglycemia Disposition: HOME/ ROUTINE Disposition Time: 15:05 Patient Plan: Discharge Condition: STABLE Discharge Instructions (ExitCare): Diabetic Hyperglycemia (ED) Additional Instructions: Follow up with your doctor Continue with your medication as was directed Return to ED or any new or worsening symptoms Referrals: [facility] [Outside] - Follow up with primary Forms: [employer] ([place] Citizen)
[2017-07-28 14:47] LABS: URINE GLUCOSE (UA) >=1000 mg/dL (NEGATIVE)
[2017-07-28 14:48] LABS: URINE APPEARANCE CLEAR (CLEAR); URINE BILIRUBIN NEGATIVE (NEGATIVE); URINE BLOOD NEGATIVE (NEGATIVE); URINE COLOR YELLOW (YELLOW); URINE LEUKOCYTE ESTERASE NEGATIVE Leu/uL (NEGATIVE); URINE NITRATE NEGATIVE (NEGATIVE); URINE PROTEIN NEGATIVE mg/dL (<30 mg/dL); URINE UROBILINOGEN 0.2 E.U./dL (<1 E.U./dL)
== END 2017-07-28 15:36 | disposition home or self-care (01) ==
LOC: ED 11:22
DX: E10.65 Type 1 diabetes mellitus with hyperglycemia (principal); Z79.4 Long term (current) use of insulin
CPT/HCPCS: 80053; 81003; 82550; 82948; 83615; 84484; 85025; 85610; 85730; 99284; J7040

== ENCOUNTER 2018-02-01 10:41 | Emergency (ER) | payer OTHER ==
[2018-02-01] MEDS ORDERED: Insulin Regular 1 UNITS/0.01 ML ML IVP STA ×2 (11:00→14:21)
[2018-02-01] MEDS ORDERED: Sodium Chloride 0.9% 1,000 ML IV STA ×2 (11:00→11:47)
[2018-02-01 11:01] VITALS: BMI 18.3
[2018-02-01 11:21] LABS: VENOUS BLOOD GAS BASE EXCESS 2.9 mmol/L (0.0-2.0); VENOUS BLOOD GAS PO2 47 mm/Hg (30-55); VENOUS BLOOD PH 7.35 (7.32-7.43)
--- NOTE | 2018-02-01 11:25 | ED PDOC ---
Arrival/HPI - History of Present Illness Time/Duration: 4-6 hours Symptom Course: Unchanged Activities at Onset: Rest, Light Context: Home <Jair Good - Last Filed: 02/01/18 15:41> <Robert Rivera DO - Last Filed: 02/01/18 17:43> - General Time Seen by Provider: 02/01/18 10:54 - History of Present Illness Narrative History of Present Illness (Text): 02/01/18 11:21 This is a 27 year old male with PMH of IDDM presenting today for elevated sugar. He takes a sliding scale of 70/30 of 50 units today, but normally takes around 30 units. He admits to insulin compliance. He admits to increase thirst, but denies abdominal pain, polyuria, SOB, chest pain, fevers, nausea, and vomiting. (Jair Good) Past Medical History - Provider Review Nursing Documentation Reviewed: Yes - Infectious Disease Hx of Infectious Diseases: None - Tetanus Immunization Tetanus Immunization: Unknown - Cardiac Hx Cardiac Disorders: No - Pulmonary Hx Respiratory Disorders: No - Neurological Hx Neurological Disorder: No - HEENT Hx HEENT Disorder: No - Renal Hx Renal Disorder: No - Endocrine/Metabolic Hx Endocrine Disorders: Yes Hx Diabetes Mellitus Type 1: Yes - Hematological/Oncological Hx Blood Disorders: No - Integumentary Hx Dermatological Disorder: No - Musculoskeletal/Rheumatological Hx Musculoskeletal Disorders: Yes Hx Falls: Yes Other/Comment: 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 - Gastrointestinal Hx Gastrointestinal Disorders: Yes Hx Pancreatitis: Yes - Genitourinary/Gynecological Hx Genitourinary Disorders: No - Psychiatric Hx Psychophysiologic Disorder: Yes (ETOH USE in past) Hx Substance Use: No - Past Surgical History Past Surgical History: No Previous - Anesthesia Hx Anesthesia: No - Suicidal Assessment Feels Threatened In Home Enviroment: No <Jair Good - Last Filed: 02/01/18 15:41> Family/Social History - Physician Review Nursing Documentation Reviewed: Yes Family/Social History: Unknown Family HX Smoking Status: Never Smoked Hx Alcohol Use: No Hx Substance Use: No Hx Substance Use Treatment: No <Jair Good - Last Filed: 02/01/18 15:41> Allergies/Home Meds <Jair Good - Last Filed: 02/01/18 15:41> <Robert Rivera DO - Last Filed: 02/01/18 17:43> Allergies/Adverse Reactions: Allergies Penicillins Allergy (Verified 02/01/18 10:53) ANAPHYLAXIS Home Medications: Home Meds Medication Instructions Recorded Confirmed Insulin Human (NPH)/Regular 25 unit SC BID 09/24/16 02/01/18 [Novolin 70/30 (70/30 units/ml) 10 ml] Gabapentin [Gabapentin] 300 mg PO BID 04/28/17 02/01/18 Review of Systems - Physician Review All systems were reviewed & negative as marked: Yes - Review of Systems Constitutional: Normal Eyes: Normal. absent: Vision Changes ENT: Normal Respiratory: Normal. absent: SOB Cardiovascular: Normal. absent: Chest Pain, Palpitations Gastrointestinal: Normal Genitourinary Male: Normal Musculoskeletal: Normal Skin: Normal Neurological: Normal Endocrine: Normal, Polydipsia. absent: Diaphoresis, Polyuria Hemo/Lymphatic: Normal Psychiatric: Normal <Jair Good - Last Filed: 02/01/18 15:41> Physical Exam Vital Signs Reviewed: Yes Temperature: Afebrile Blood Pressure: Normal Pulse: Regular Respiratory Rate: Normal Appearance: Positive for: Well-Appearing, Non-Toxic, Comfortable Pain Distress: None Mental Status: Positive for: Alert and Oriented X 3 Finger Stick Blood Glucose: 500 - Systems Exam Head: Present: Atraumatic, Normocephalic Pupils: Present: PERRL Extroacular Muscles: Present: EOMI Conjunctiva: Present: Normal Mouth: Present: Moist Mucous Membranes Neck: Present: Normal Range of Motion Respiratory/Chest: Present: Clear to Auscultation, Good Air Exchange. No: Respiratory Distress, Accessory Muscle Use Cardiovascular: Present: Regular Rate and Rhythm, Normal S1, S2. No: Murmurs Abdomen: No: Tenderness, Distention, Peritoneal Signs Back: Present: Normal Inspection Upper Extremity: Present: Normal Inspection. No: Cyanosis, Edema Lower Extremity: Present: Normal Inspection. No: Edema Neurological: Present: Speech Normal, Motor Func Grossly Intact, Normal Sensory Function Skin: Present: Warm, Dry, Normal Color. No: Rashes Psychiatric: Present: Alert, Oriented x 3, Normal Insight, Normal Concentration <Jair Good - Last Filed: 02/01/18 15:41> Vital Signs Temp Pulse Resp BP Pulse Ox 02/01/18 15:23 98.0 F 78 18 110/78 99 02/01/18 10:54 98.2 F 94 H 17 113/85 100 Medical Decision Making <Jair Good - Last Filed: 02/01/18 15:41> <Robert Rivera DO - Last Filed: 02/01/18 17:43> ED Course and Treatment: 02/01/18 11:27 This is a 27 year old male with PMH of IDDM presenting today for elevated sugar. Differential not limited to: IDDM Plan: -CBC, CMP -U/A, urine culture -chest xray -venous blood gas -insulin Progress: Vitals stable, patient resting comfortably. 02/01/18 13:11 glucose now in the 200's, down from the 500s (Jair Good) A 27 year old male with elevated blood sugar. In agreement with resident note, which includes further HPI details. Patient was seen and evaluated with resident , came up with plan and treatment together. (Robert Rivera DO) - Lab Interpretations Lab Results: 02/01/18 11:00 02/01/18 11:00 Lab Results 02/01/18 15:19: POC Glucose (mg/dL) 221 H 02/01/18 13:46: POC Glucose (mg/dL) 307 H 02/01/18 13:02: POC Glucose (mg/dL) 281 H 02/01/18 11:56: POC Glucose (mg/dL) 363 H 02/01/18 11:00: pO2 47, VBG pH 7.35, VBG pCO2 54.0, VBG HCO3 29.8 H, VBG Total CO2 31.5 H, VBG O2 Sat (Calc) 82.7 H, VBG Base Excess 2.9 H, VBG Potassium 3.9, Sodium 133.0, Chloride 95.0 L, Glucose 583 H* D, Lactate 1.4, FiO2 21.0, Venous Blood Potassium 3.9 02/01/18 11:00: Sodium 135, Chloride 93 L, Potassium 3.9, Carbon Dioxide 28, Anion Gap 17, BUN 9, Creatinine 0.4 L, Est GFR ( Amer) > 60, Est GFR (Non -Af Amer) > 60, Random Glucose 574 H* D, Calcium 9.5, Total Bilirubin 0.4, AST 29, ALT 39, Alkaline Phosphatase 185 H D, Total Protein 7.4, Albumin 4.6, Globulin 2.9, Albumin/Globulin Ratio 1.6 02/01/18 11:00: WBC 4.3 L, RBC 4.48, Hgb 13.8 L, Hct 39.6 L, MCV 88.4, MCH 30.8 , MCHC 34.8, RDW 12.1, Plt Count 221, MPV 9.5, Gran % 52.0, Lymph % (Auto) 41.3 H, [place]cock % (Auto) 5.6, Eos % (Auto) 0.9 L, Baso % (Auto) 0.2, Gran # 2.23, Lymph # (Auto) 1.8, Glasscock # (Auto) 0.2, Eos # (Auto) 0.0, Baso # (Auto) 0.01 02/01/18 10:47: POC Glucose (mg/dL) > 500 H* - RAD Interpretation Radiology Orders: 02/01/18 10:59 CHEST PORTABLE [RAD] Stat - Medication Orders Current Medication Orders: Discontinued Medications Sodium Chloride (Sodium Chloride 0.9%) 1,000 mls @ 999 mls/hr IV .Q1H1M STA Stop: 02/01/18 12:00 Last Admin: 02/01/18 11:25 Dose: 999 mls/hr eMAR Start Stop Document 02/01/18 11:25 [email or web address] (Rec: 02/01/18 11:25 [email or web address] [id number]) Intravenous Solution Start Date 02/01/18 Start Time 11:25 End Date 02/01/18 Sodium Chloride (Sodium Chloride 0.9%) 1,000 mls @ 999 mls/hr IV .Q1H1M STA Stop: 02/01/18 12:47 Last Admin: 02/01/18 12:01 Dose: 999 mls/hr eMAR Start Stop Document 02/01/18 12:01 [email or web address] (Rec: 02/01/18 12:01 [email or web address] [id number]) Intravenous Solution Start Date 02/01/18 Start Time 12:01 End Date 02/01/18 Insulin Human Regular (Humulin R) 8 units IVP STAT STA Stop: 02/01/18 11:01 Last Admin: 02/01/18 11:40 Dose: 8 units MAR Blood Glucose Document 02/01/18 11:40 [email or web address] (Rec: 02/01/18 11:40 [email or web address] [id number]) Blood Glucose Finger Stick Blood Glucose (70-120) 500 IVP Administration Document 02/01/18 11:40 [email or web address] (Rec: 02/01/18 11:40 [email or web address] [id number]) Charges for Administration # of IVP Administrations 1 Insulin Human Regular (Humulin R) 4 units IVP STAT STA Stop: 02/01/18 14:22 Last Admin: 02/01/18 14:27 Dose: 4 unit MAR Blood Glucose Document 02/01/18 14:27 [email or web address] (Rec: 02/01/18 14:27 [email or web address] [id number]) Blood Glucose Finger Stick Blood Glucose (70-120) 307 IVP Administration Document 02/01/18 14:27 [email or web address] (Rec: 02/01/18 14:27 [email or web address] [id number]) Charges for Administration # of IVP Administrations 1 - PA / METER TECHNICIAN / Resident Statement / has reviewed & agrees with the documentation as recorded. RICH has examined the patient and agrees with the treatment plan. <Jair Good - Last Filed: 02/01/18 15:41> - Scribe Statement The provider has reviewed the documentation as recorded by the Scribe <Robert Rivera DO - Last Filed: 02/01/18 17:43> - Scribe Statement Anju De Guzman Provider Scribe Attestation: All medical record entries made by the Scribe were at my direction and personally dictated by me. I have reviewed the chart and agree that the record accurately reflects my personal performance of the history, physical exam, medical decision making, and the department course for this patient. I have also personally directed, reviewed, and agree with the discharge instructions and disposition. (Robert Rivera DO) Disposition/Present on Arrival - Present on Arrival Any Indicators Present on Arrival: Yes History of DVT/PE: No History of Uncontrolled Diabetes: Yes Urinary Catheter: No History of Decub. Ulcer: No History Surgical Site Infection Following: None - Disposition Have Diagnosis and Disposition been Completed?: Yes Disposition Time: 15:00 <Jair Good - Last Filed: 02/01/18 15:41> - Disposition Disposition Time: 11:50 <Robert Rivera DO - Last Filed: 02/01/18 17:43> - Disposition Diagnosis: Hyperglycemia due to type 1 diabetes mellitus, Diabetes, Hyperglycemia Disposition: HOME/ ROUTINE Condition: IMPROVED Discharge Instructions (ExitCare): Hyperglycemia, Adult (DC), Diabetic Meal Planning , Diabetes and Diet Additional Instructions: MARCELA CHAND, thank you for letting us take care of you today. The emergency medical care you received today was directed at your acute symptoms. If you were prescribed any medication, please fill it and take as directed. It may take several days for your symptoms to resolve. Return to the Emergency Department if your symptoms worsen, do not improve, or if you have any other problems. Please contact your doctor or call one of the physicians/clinics you have been referred to that are listed on the Patient Visit Information form that is included in your discharge packet. Bring any paperwork you were given at discharge with you along with any medications you are taking to your follow up visit. Our treatment cannot replace ongoing medical care by a primary care provider outside of the emergency department. Thank you for allowing the [facility] team to be part of your care today. Follow up with your primary doctor in 1-2 days for re-evaluation and further management. Referrals: [facility], [Non-Staff] - Follow up with primary Forms: [employer] ([place])
[2018-02-01 11:36] LABS: BASO # 0.01 K/mm3 (0.0-2.0); BASO % 0.2 % (0.0-3.0); EOS % 0.9 % (1.5-5.0); GRAN # 2.23 (1.4-6.5); HEMOGLOBIN 13.8 g/dL (14.0-18.0); LYMPH # 1.8 (1.2-3.4); LYMPH % 41.3 % (22.0-35.0); MEAN CELL VOLUME 88.4 fl (80.0-105.0); MEAN CORPUSCULAR HEMOGLOBIN 30.8 pg (25.0-35.0); MEAN CORPUSCULAR HGB CONC 34.8 g/dl (31.0-37.0); MEAN PLATELET VOLUME 9.5 fl (7.0-11.0); MONO # 0.2 (0.1-0.6); MONO % 5.6 % (1.0-6.0); RBC 4.48 10^6/uL (3.5-6.1); RED CELL DISTRIBUTION WIDTH 12.1 % (11.5-14.5); WHITE BLOOD COUNT 4.3 10^3/ul (4.5-11.0)
--- NOTE | 2018-02-01 11:39 | RAD ---
Date of service: 02/01/2018 HISTORY: r/o infiltrate COMPARISON: 09/24/2016. FINDINGS: LUNGS: The lungs are well inflated and clear. PLEURA: No significant pleural effusion identified, no pneumothorax apparent. CARDIOVASCULAR: Normal. OSSEOUS STRUCTURES: No significant abnormalities. VISUALIZED UPPER ABDOMEN: Normal. OTHER FINDINGS: None. IMPRESSION: No active pulmonary disease.
[2018-02-01 11:41] LABS: ALB/GLOB RATIO 1.6 (1.1-1.8); ALBUMIN 4.6 g/dL (3.0-4.8); ALT/SGPT 39 U/L (7-56); AST/SGOT 29 U/L (17-59); BLOOD UREA NITROGEN 9 mg/dL (7-21); CALCIUM 9.5 mg/dL (8.4-10.5); GFR AFRICAN-AMERICAN > 60; GFR NON-AFRICAN AMERICAN > 60
[2018-02-01 15:24] VITALS: BP 110/78; PULSE 78; RESP 18; TEMP 98; O2SAT 99
== END 2018-02-01 15:24 | disposition home or self-care (01) ==
LOC: ED 10:41
DX: E10.65 Type 1 diabetes mellitus with hyperglycemia (principal); Z79.4 Long term (current) use of insulin
CPT/HCPCS: 71045; 80053; 82803; 82948; 85025; 96374; 96376; 99283; J7030